=== PATIENT | female | born 1955 | race African-American/Black ===

== ENCOUNTER 2021-08-13 14:00 | Inpatient (IN) | payer OTHER ==
[2021-08-13 17:05] LABS: BASO % 1.2 % (0-2.0); EOS % 3.1 % (0-4.5); HEMATOCRIT 35.3 % (32.4-45.2); HEMOGLOBIN 11.5 GM/dL (10.7-15.3); LYMPH % 24.3 % (8-40); MCH 33.3 pg (25.7-33.7); MCHC 32.5 g/dl (32.0-36.0); MEAN CELL VOLUME 102.6 fl (80-96); MEAN PLT VOLUME 9.9 fl (7.5-11.1); MONO % 10.8 % (3.8-10.2); NEUT % 60.6 % (42.8-82.8); PLATELET COUNT 257 10^3/uL (134-434); RBC 3.44 M/mm3 (3.60-5.2); RDW 25.7 % (11.6-15.6); WHITE BLOOD COUNT 7.3 K/mm3 (4.0-10.0)
[2021-08-13 17:31] LABS: ANISOCYTOSIS 3+; MACROCYTOSIS 3+; TARGET CELLS 1+
[2021-08-13 18:00] LABS: CHLORIDE 95 mmol/L (98-107); SODIUM 133 mmol/L (136-145)
[2021-08-13 18:02] LABS: BLOOD UREA NITROGEN 55.4 mg/dL (7-18); CALCIUM 10.2 mg/dL (8.5-10.1); CO2 23 mmol/L (21-32); GLUCOSE,RANDOM 78 mg/dL (74-106); MAGNESIUM 2.1 mg/dL (1.8-2.4)
[2021-08-13 18:06] LABS: SGOT/AST 167 U/L (15-37); SGPT/ALT 124 U/L (13-61)
[2021-08-13 18:07] LABS: BILIRUBIN,TOTAL 2.4 mg/dL (0.2-1); TOT PROT 7.9 g/dl (6.4-8.2)
[2021-08-13 18:08] LABS: ALK PHOS 227 U/L (45-117)
[2021-08-13 18:10] LABS: N-TERMINAL BNP 31964.6 pg/ml (5-125)
[2021-08-13 18:27] LABS: ANION GAP 15 MMOL/L (8-16); CREATININE 8.1 mg/dL (0.55-1.3)
[2021-08-13 18:41] LABS: INR 1.73 (0.83-1.09)
[2021-08-13 18:43] LABS: ACTIVATED PTT 41.2 SECONDS (25.2-36.5)
[2021-08-13 18:54] LABS: CHLORIDE 97 mmol/L (98-107); SODIUM 137 mmol/L (136-145)
[2021-08-13 18:56] LABS: CALCIUM 9.5 mg/dL (8.5-10.1)
[2021-08-13 18:57] LABS: ANION GAP 17 MMOL/L (8-16); BLOOD UREA NITROGEN 51.6 mg/dL (7-18); CO2 23 mmol/L (21-32); GLUCOSE,RANDOM 74 mg/dL (74-106)
[2021-08-13 19:00] LABS: SGOT/AST 134 U/L (15-37); SGPT/ALT 116 U/L (13-61)
[2021-08-13 19:01] LABS: BILIRUBIN,TOTAL 2.3 mg/dL (0.2-1); TOT PROT 7.5 g/dl (6.4-8.2)
[2021-08-13 19:02] LABS: ALK PHOS 223 U/L (45-117)
[2021-08-13 19:03] LABS: CREATININE 7.6 mg/dL (0.55-1.3)
[2021-08-14 02:05] LABS: URINE APPEARANCE TURBID; URINE BILIRUBIN 3+ (NEGATIVE); URINE COLOR RED; URINE GLUCOSE (UA) NEGATIVE (NEGATIVE); URINE KETONE TRACE (NEGATIVE); URINE LEUK ESTERASE 3+ (NEGATIVE); URINE NITRITE POSITIVE (NEGATIVE); URINE PROTEIN 1+ (NEGATIVE); URINE UROBILINOGEN 0.2 mg/dL (0.2-1.0)
[2021-08-14 03:41] VITALS: BMI 27.5
[2021-08-14 04:23] LABS: URINE RBC >1000 /uL (0-23.9)
[2021-08-14 04:24] LABS: URINE BACTERIA 50 /uL (0-1359); URINE WBC 5 /uL (0-25.8)
[2021-08-14] MEDS: LEVOTHYROXINE NA 150 MCG TABLET PO SCH (06:05)
[2021-08-14 07:43] LABS: CHLORIDE 98 mmol/L (98-107); SODIUM 136 mmol/L (136-145)
[2021-08-14 07:48] LABS: ALBUMIN 2.7 g/dl (3.4-5.0); ANION GAP 18 MMOL/L (8-16); BLOOD UREA NITROGEN 61.6 mg/dL (7-18); CALCIUM 9.3 mg/dL (8.5-10.1); CO2 21 mmol/L (21-32); GLUCOSE,RANDOM 52 mg/dL (74-106); HEMATOCRIT 34.6 % (32.4-45.2); MAGNESIUM 1.9 mg/dL (1.8-2.4); MCHC 31.9 g/dl (32.0-36.0); MEAN CELL VOLUME 103.4 fl (80-96); MEAN PLT VOLUME 9.8 fl (7.5-11.1); PLATELET COUNT 197 10^3/uL (134-434); RBC 3.34 M/mm3 (3.60-5.2); RDW 25.4 % (11.6-15.6); WHITE BLOOD COUNT 6.7 K/mm3 (4.0-10.0)
[2021-08-14 07:50] LABS: PHOSPHOROUS 7.4 mg/dL (2.5-4.9); SGOT/AST 120 U/L (15-37); SGPT/ALT 104 U/L (13-61)
[2021-08-14 07:51] LABS: BILIRUBIN,TOTAL 2.4 mg/dL (0.2-1); TOT PROT 6.6 g/dl (6.4-8.2)
[2021-08-14 07:55] LABS: ALK PHOS 193 U/L (45-117)
[2021-08-14 08:12] LABS: CREATININE 8.6 mg/dL (0.55-1.3)
[2021-08-14] MEDS ORDERED: cefTRIAXone SODIUM 1 GM VIAL ONE (09:35)
[2021-08-14] MEDS ORDERED: DEXTROSE 5%-WATER - 50 ML IVPB ONE (09:36)
[2021-08-14] MEDS: CEFTRIAXONE 1 GM in DEXTROSE 5%-WATER - 50 ML IVPB SCH (09:47)
[2021-08-14] MEDS ORDERED: SODIUM CHLORIDE 250 ML IV PRN (10:28)
[2021-08-14] MEDS ORDERED: DEXTROSE 50%-WATER - 25 GM/50 ML VIAL IVPUSH ONE (13:45)
[2021-08-14] MEDS ORDERED: DEXTROSE 70%-WATER - 35 ML, WATER FOR INJ,STERILE 15 ML IV ONE (13:45)
[2021-08-14] MEDS: ASPIRIN 81 MG CHEWABLE TABLETS PO SCH (16:22)
[2021-08-14] MEDS: HEPARIN NA (PORCINE) 5,000 UNITS/ML 1ML VIAL SQ SCH ×2 (16:22→21:31)
[2021-08-14] MEDS: CLOPIDOGREL BISULFATE 75 MG TABLET (FP) PO SCH (16:22)
[2021-08-14] MEDS: SEVELAMER CARBONATE 800 MG TAB (FP) PO SCH (17:12)
[2021-08-14] MEDS ORDERED: traZODone HCL 50 MG TABLET (FP) PO ONE (23:16)
[2021-08-15] MEDS: LEVOTHYROXINE NA 150 MCG TABLET PO SCH (06:10)
[2021-08-15] MEDS ORDERED: cefTRIAXone SODIUM 1 GM VIAL ONE (09:01)
[2021-08-15] MEDS ORDERED: DEXTROSE 5%-WATER - 50 ML IVPB ONE (09:02)
[2021-08-15] MEDS: SEVELAMER CARBONATE 800 MG TAB (FP) PO SCH ×3 (09:25→17:40)
[2021-08-15] MEDS: HEPARIN NA (PORCINE) 5,000 UNITS/ML 1ML VIAL SQ SCH ×2 (09:25→21:56)
[2021-08-15] MEDS: CLOPIDOGREL BISULFATE 75 MG TABLET (FP) PO SCH (09:25)
[2021-08-15] MEDS: ASPIRIN 81 MG CHEWABLE TABLETS PO SCH (09:26)
[2021-08-15] MEDS: CEFTRIAXONE 1 GM in DEXTROSE 5%-WATER - 50 ML IVPB SCH (09:36)
[2021-08-15] MEDS ORDERED: CARVEDILOL 3.125 MG TABLET (FP) PO ONE (17:29)
[2021-08-15] MEDS: traZODone HCL 50 MG TABLET (FP) PO SCH (21:56)
[2021-08-16] MEDS: LEVOTHYROXINE NA 150 MCG TABLET PO SCH (07:01)
[2021-08-16 07:31] LABS: BASO % 1.1 % (0-2.0); EOS % 7.7 % (0-4.5); HEMATOCRIT 33.6 % (32.4-45.2); HEMOGLOBIN 10.7 GM/dL (10.7-15.3); LYMPH % 24.9 % (8-40); MCH 33.2 pg (25.7-33.7); MCHC 31.9 g/dl (32.0-36.0); MEAN PLT VOLUME 8.8 fl (7.5-11.1); MONO % 12.6 % (3.8-10.2); NEUT % 53.7 % (42.8-82.8); PLATELET COUNT 157 10^3/uL (134-434); RBC 3.23 M/mm3 (3.60-5.2); RDW 26.8 % (11.6-15.6); WHITE BLOOD COUNT 5.5 K/mm3 (4.0-10.0)
[2021-08-16 07:56] LABS: CALCIUM 9.5 mg/dL (8.5-10.1)
[2021-08-16 07:57] LABS: ALBUMIN 2.6 g/dl (3.4-5.0)
[2021-08-16 08:00] LABS: CREATININE 7.4 mg/dL (0.55-1.3)
[2021-08-16 08:02] LABS: BILIRUBIN,TOTAL 1.9 mg/dL (0.2-1); TOT PROT 6.8 g/dl (6.4-8.2)
[2021-08-16] MEDS ORDERED: cefTRIAXone SODIUM 1 GM VIAL ONE (08:52)
[2021-08-16] MEDS ORDERED: DEXTROSE 5%-WATER - 50 ML IVPB ONE (08:53)
[2021-08-16] MEDS: ASPIRIN 81 MG CHEWABLE TABLETS PO SCH (09:57)
[2021-08-16] MEDS: HEPARIN NA (PORCINE) 5,000 UNITS/ML 1ML VIAL SQ SCH ×2 (09:57→22:19)
[2021-08-16] MEDS: SEVELAMER CARBONATE 800 MG TAB (FP) PO SCH ×3 (09:57→17:48)
[2021-08-16] MEDS: CLOPIDOGREL BISULFATE 75 MG TABLET (FP) PO SCH (09:57)
[2021-08-16] MEDS: CEFTRIAXONE 1 GM in DEXTROSE 5%-WATER - 50 ML IVPB SCH (09:58)
[2021-08-16] MEDS ORDERED: SODIUM CHLORIDE 250 ML IV PRN (13:46)
[2021-08-16] MEDS: traZODone HCL 50 MG TABLET (FP) PO SCH (22:19)
[2021-08-17] MEDS: LEVOTHYROXINE NA 150 MCG TABLET PO SCH ×2 (05:24→06:07)
[2021-08-17] MEDS: SEVELAMER CARBONATE 800 MG TAB (FP) PO SCH ×3 (08:22→18:10)
[2021-08-17 08:41] LABS: BLOOD UREA NITROGEN 24.8 mg/dL (7-18); CALCIUM 8.7 mg/dL (8.5-10.1)
[2021-08-17 08:44] LABS: CREATININE 5.6 mg/dL (0.55-1.3)
[2021-08-17] MEDS ORDERED: cefTRIAXone SODIUM 1 GM VIAL ONE (09:07)
[2021-08-17] MEDS ORDERED: DEXTROSE 5%-WATER - 50 ML IVPB ONE (09:07)
[2021-08-17] MEDS: HEPARIN NA (PORCINE) 5,000 UNITS/ML 1ML VIAL SQ SCH ×2 (09:16→22:09)
[2021-08-17] MEDS: CLOPIDOGREL BISULFATE 75 MG TABLET (FP) PO SCH (09:16)
[2021-08-17] MEDS: PANTOPRAZOLE 20 MG TABLET PO SCH (09:16)
[2021-08-17] MEDS: ASPIRIN 81 MG CHEWABLE TABLETS PO SCH (09:16)
[2021-08-17 10:50] LABS: ALBUMIN 2.6 g/dl (3.4-5.0)
[2021-08-17 10:53] LABS: BILIRUBIN,DIRECT 1.1 mg/dL (0.0-0.2)
[2021-08-17 10:54] LABS: TOT PROT 6.6 g/dl (6.4-8.2)
[2021-08-17 10:55] LABS: BILIRUBIN,TOTAL 1.7 mg/dL (0.2-1)
[2021-08-17] MEDS ORDERED: FUROSEMIDE 40 MG TABLET (FP) PO ONE ×2 (15:37→18:15)
[2021-08-17] MEDS ORDERED: SODIUM CHLORIDE 250 ML IV PRN (15:37)
[2021-08-17 16:15] LABS: CALCIUM 9.2 mg/dL (8.5-10.1)
[2021-08-17 16:16] LABS: ALBUMIN 2.7 g/dl (3.4-5.0); BLOOD UREA NITROGEN 26.5 mg/dL (7-18)
[2021-08-17 16:21] LABS: BILIRUBIN,TOTAL 1.4 mg/dL (0.2-1); TOT PROT 7.1 g/dl (6.4-8.2)
[2021-08-17] MEDS: POLYETHYLENE GLYCOL (HEALTHYLAX) 3350 17 GM PACKET PO SCH (22:08)
[2021-08-17] MEDS: traZODone HCL 50 MG TABLET (FP) PO SCH (22:08)
[2021-08-18] MEDS: LEVOTHYROXINE NA 150 MCG TABLET PO SCH (06:21)
[2021-08-18] MEDS: SEVELAMER CARBONATE 800 MG TAB (FP) PO SCH ×3 (08:00→18:18)
[2021-08-18 09:08] LABS: HEMATOCRIT 34.4 % (32.4-45.2); HEMOGLOBIN 10.9 GM/dL (10.7-15.3); MCH 33.4 pg (25.7-33.7); MCHC 31.6 g/dl (32.0-36.0); MEAN CELL VOLUME 105.6 fl (80-96); MEAN PLT VOLUME 9.6 fl (7.5-11.1); PLATELET COUNT 157 10^3/uL (134-434); RBC 3.26 M/mm3 (3.60-5.2); RDW 26.3 % (11.6-15.6); WHITE BLOOD COUNT 5.4 K/mm3 (4.0-10.0)
[2021-08-18 09:23] LABS: ALBUMIN 2.6 g/dl (3.4-5.0); CALCIUM 9.2 mg/dL (8.5-10.1)
[2021-08-18 09:24] LABS: BLOOD UREA NITROGEN 28.6 mg/dL (7-18)
[2021-08-18 09:26] LABS: CREATININE 6.7 mg/dL (0.55-1.3)
[2021-08-18 09:28] LABS: BILIRUBIN,TOTAL 1.5 mg/dL (0.2-1); TOT PROT 6.7 g/dl (6.4-8.2)
[2021-08-18] MEDS: HEPARIN NA (PORCINE) 5,000 UNITS/ML 1ML VIAL SQ SCH ×2 (10:00→21:17)
[2021-08-18 10:28] LABS: ANISOCYTOSIS 0; HELMET CELLS 0; HOWELL-JOLLY BODIES 0; MACROCYTOSIS 0; OVALOCYTE 0; ROULEAU 0; SICKELED CELLS 0; TARGET CELLS 0; TEAR DROP CELLS 0; TOXIC GRANULATION 0
[2021-08-18] MEDS ORDERED: SODIUM CHLORIDE 250 ML IV PRN (12:15)
[2021-08-18] MEDS: ASPIRIN 81 MG CHEWABLE TABLETS PO SCH (13:19)
[2021-08-18] MEDS: POLYETHYLENE GLYCOL (HEALTHYLAX) 3350 17 GM PACKET PO SCH ×2 (13:19→21:05)
[2021-08-18] MEDS: PANTOPRAZOLE 20 MG TABLET PO SCH (13:19)
[2021-08-18] MEDS: CLOPIDOGREL BISULFATE 75 MG TABLET (FP) PO SCH (13:20)
[2021-08-18] MEDS: traZODone HCL 50 MG TABLET (FP) PO SCH (21:17)
[2021-08-19] MEDS: LEVOTHYROXINE NA 150 MCG TABLET PO SCH (06:03)
[2021-08-19 08:33] LABS: INR 1.45 (0.83-1.09); PROTHROMBIN TIME (PATIENT) 16.7 SEC (9.7-13.0)
[2021-08-19] MEDS ORDERED: HEPARIN NA (PORCINE) 5,000 UNITS/ML 1ML VIAL IVPUSH ONE (12:15)
[2021-08-19 13:11] LABS: HEMATOCRIT 33.6 % (32.4-45.2); HEMOGLOBIN 10.7 GM/dL (10.7-15.3); MCH 33.2 pg (25.7-33.7); MCHC 31.8 g/dl (32.0-36.0); MEAN CELL VOLUME 104.4 fl (80-96); MEAN PLT VOLUME 9.8 fl (7.5-11.1); PLATELET COUNT 153 10^3/uL (134-434); RBC 3.22 M/mm3 (3.60-5.2); RDW 25.6 % (11.6-15.6)
[2021-08-19 13:32] LABS: CALCIUM 8.4 mg/dL (8.5-10.1)
[2021-08-19 13:33] LABS: BLOOD UREA NITROGEN 18.1 mg/dL (7-18)
[2021-08-19 13:36] LABS: CREATININE 4.7 mg/dL (0.55-1.3)
[2021-08-19] MEDS: SEVELAMER CARBONATE 800 MG TAB (FP) PO SCH ×3 (15:16→18:08)
[2021-08-19] MEDS: POLYETHYLENE GLYCOL (HEALTHYLAX) 3350 17 GM PACKET PO SCH ×2 (15:17→21:36)
[2021-08-19] MEDS: HEPARIN NA (PORCINE) 5,000 UNITS/ML 1ML VIAL SQ SCH ×2 (15:17→21:37)
[2021-08-19] MEDS: CLOPIDOGREL BISULFATE 75 MG TABLET (FP) PO SCH (15:19)
[2021-08-19] MEDS: PANTOPRAZOLE 20 MG TABLET PO SCH (15:19)
[2021-08-19] MEDS: ASPIRIN 81 MG CHEWABLE TABLETS PO SCH (15:20)
[2021-08-19 18:34] LABS: ALBUMIN 2.5 g/dl (3.4-5.0)
[2021-08-19 18:37] LABS: BILIRUBIN,DIRECT 0.9 mg/dL (0.0-0.2)
[2021-08-19 18:39] LABS: BILIRUBIN,TOTAL 1.2 mg/dL (0.2-1); TOT PROT 6.4 g/dl (6.4-8.2)
[2021-08-19] MEDS: traZODone HCL 50 MG TABLET (FP) PO SCH (21:37)
[2021-08-20] MEDS: LEVOTHYROXINE NA 150 MCG TABLET PO SCH (06:19)
[2021-08-20] MEDS: POLYETHYLENE GLYCOL (HEALTHYLAX) 3350 17 GM PACKET PO SCH (09:01)
[2021-08-20] MEDS: CLOPIDOGREL BISULFATE 75 MG TABLET (FP) PO SCH (09:01)
[2021-08-20] MEDS: ASPIRIN 81 MG CHEWABLE TABLETS PO SCH (09:01)
[2021-08-20] MEDS: PANTOPRAZOLE 20 MG TABLET PO SCH (09:01)
[2021-08-20] MEDS: SEVELAMER CARBONATE 800 MG TAB (FP) PO SCH ×2 (09:01→12:49)
[2021-08-20] MEDS: HEPARIN NA (PORCINE) 5,000 UNITS/ML 1ML VIAL SQ SCH (09:01)
[2021-08-20 10:54] VITALS: BP 132/75; PULSE 87; TEMP 98.7
== END 2021-08-20 14:26 | DRG 291 ==
LOC: JER 14:00 → JERBED 22:28 → J4W 08-14 03:09
PROVIDERS: ADMIT Internal Medicine; ATTEND Family Medicine
PROC: 5A1D70Z Performance of Urinary Filtration, Intermittent, Less than 6 Hours Per Day (ICD-10-PCS; principal; 2021-08-19)
DX: I13.2 Hypertensive heart and chronic kidney disease with heart failure and with stage 5 chronic kidney disease, or end stage renal disease (principal); N18.6 End stage renal disease; I50.23 Acute on chronic systolic (congestive) heart failure; N39.0 Urinary tract infection, site not specified; K62.5 Hemorrhage of anus and rectum; I47.2 Ventricular tachycardia; D25.9 Leiomyoma of uterus, unspecified; I25.10 Atherosclerotic heart disease of native coronary artery without angina pectoris; Z99.2 Dependence on renal dialysis; E78.5 Hyperlipidemia, unspecified; E03.9 Hypothyroidism, unspecified; E87.5 Hyperkalemia; R31.9 Hematuria, unspecified; Z95.1 Presence of aortocoronary bypass graft; E87.70 Fluid overload, unspecified; K59.00 Constipation, unspecified
CPT/HCPCS: 36415; 71045-TC-FY; 74176-TC; 74181-TC; 76705-TC; 76856-TC; 80048; 80053; 80076; 81003; 82272; 82550; 82553; 82728; 82962; 83516; 83540; 83550; 83690; 83735; 83880; 84100; 84466; 84484; 85025; 85027; 85610; 85730; 86038; 86803; 87040; 87340; 93005; 93010; 99285-25; C9803; J1644; U0003; U0005

== ENCOUNTER 2022-01-06 00:27 | Inpatient (IN) | payer OTHER ==
[2022-01-06] MEDS ORDERED: CALCIUM GLUCONATE 10% - 1,000 MG/10 ML VIAL IVPB ONE (01:50)
[2022-01-06] MEDS ORDERED: CALCIUM CHLORIDE 1 GM/10 ML *DISP.SYRIN ONE (02:44)
[2022-01-06] MEDS ORDERED: SODIUM ZIRCONIUM CYCLOSILICATE (LOKELMA) 5 GM PACKET ONE (02:44)
[2022-01-06] MEDS ORDERED: CALCIUM GLUCONATE 10% - 1,000 MG/10 ML VIAL ONE (02:45)
[2022-01-06] MEDS ORDERED: CALCIUM GLUC IN NACL, ISO-OSM 2 GM/100 ML BAG IVPB ONE (02:48)
[2022-01-06 02:56] LABS: BASO % 1.4 % (0-2.0); EOS % 5.5 % (0-4.5); HEMATOCRIT 31.2 % (32.4-45.2); HEMOGLOBIN 10.6 GM/dL (10.7-15.3); LYMPH % 37.2 % (8-40); MCH 31.9 pg (25.7-33.7); MCHC 34.1 g/dl (32.0-36.0); MEAN CELL VOLUME 93.5 fl (80-96); MEAN PLT VOLUME 7.6 fl (7.5-11.1); MONO % 11.3 % (3.8-10.2); NEUT % 44.6 % (42.8-82.8); PLATELET COUNT 356 10^3/uL (134-434); RBC 3.34 M/mm3 (3.60-5.2); RDW 18.1 % (11.6-15.6)
[2022-01-06 03:14] LABS: CHLORIDE 100 mmol/L (98-107); SODIUM 137 mmol/L (136-145)
[2022-01-06 03:17] LABS: ALBUMIN 2.8 g/dl (3.4-5.0); BLOOD UREA NITROGEN 58.7 mg/dL (7-18); CO2 27 mmol/L (21-32); GLUCOSE,RANDOM 99 mg/dL (74-106); MAGNESIUM 2.2 mg/dL (1.8-2.4)
[2022-01-06 03:20] LABS: CREATININE 6.5 mg/dL (0.55-1.3); PHOSPHOROUS 4.7 mg/dL (2.5-4.9); SGOT/AST 39 U/L (15-37); SGPT/ALT 21 U/L (13-61)
[2022-01-06 03:21] LABS: TOT PROT 7.4 g/dl (6.4-8.2)
[2022-01-06 03:22] LABS: BILIRUBIN,TOTAL 0.5 mg/dL (0.2-1)
[2022-01-06 03:23] LABS: ALK PHOS 212 U/L (45-117)
[2022-01-06 03:37] LABS: ANION GAP 11 MMOL/L (8-16)
[2022-01-06] MEDS ORDERED: INSULIN REGULAR HUMAN 100 UNITS/ML *VIAL IVPUSH ONE (04:07)
[2022-01-06] MEDS ORDERED: DEXTROSE 50%-WATER - 25 GM/50 ML VIAL IVPUSH ONE ×2 (04:07→05:30)
[2022-01-06] MEDS ORDERED: INSULIN REGULAR HUMAN 100 UNITS/ML *VIAL ONE (04:20)
[2022-01-06] MEDS ORDERED: DEXTROSE 50%-WATER 25 GM/50 ML DISP.SYRIN ONE ×2 (04:20→05:30)
[2022-01-06] MEDS: SODIUM ZIRCONIUM CYCLOSILICATE (LOKELMA) 5 GM PACKET PO SCH ×2 (04:35→10:02)
[2022-01-06] MEDS ORDERED: DEXTROSE 50%-WATER - 25 GM/50 ML VIAL IVPUSH PRN (06:17)
[2022-01-06] MEDS ORDERED: SODIUM CHLORIDE 250 ML IV PRN (08:25)
[2022-01-06] MEDS ORDERED: SODIUM ZIRCONIUM CYCLOSILICATE (LOKELMA) 5 GM PACKET PO SCH (10:00)
[2022-01-06] MEDS: ALBUTEROL SO4 2.5/IPRATROPIUM 0.5 INH SOL 3 ML VIAL.NEB. NEB SCH ×2 (13:45→22:48)
[2022-01-06] MEDS ORDERED: ALBUTEROL SO4 2.5/IPRATROPIUM 0.5 INH SOL 3 ML VIAL.NEB. NEB ONE (15:29)
[2022-01-06] MEDS ORDERED: traZODone HCL 50 MG TABLET (FP) PO SCH (22:00)
[2022-01-06] MEDS: HEPARIN NA (PORCINE) 5,000 UNITS/ML 1ML VIAL SQ SCH (22:31)
[2022-01-06] MEDS: POLYETHYLENE GLYCOL (HEALTHYLAX) 3350 17 GM PACKET PO SCH (22:31)
[2022-01-07] MEDS ORDERED: traZODone HCL 50 MG TABLET (FP) PO ONE ×2 (02:23→21:15)
[2022-01-07 04:25] VITALS: BMI 27.3
[2022-01-07] MEDS: LEVOTHYROXINE NA 150 MCG TABLET PO SCH (06:17)
[2022-01-07] MEDS: ALBUTEROL SO4 2.5/IPRATROPIUM 0.5 INH SOL 3 ML VIAL.NEB. NEB SCH ×3 (07:45→20:39)
[2022-01-07] MEDS: SERTRALINE HCL 50 MG TABLET (FP) PO SCH (10:12)
[2022-01-07] MEDS: ASPIRIN 81 MG CHEWABLE TABLETS PO SCH (10:12)
[2022-01-07] MEDS: HEPARIN NA (PORCINE) 5,000 UNITS/ML 1ML VIAL SQ SCH ×2 (10:12→21:08)
[2022-01-07] MEDS: SODIUM ZIRCONIUM CYCLOSILICATE (LOKELMA) 5 GM PACKET PO SCH (10:12)
[2022-01-07] MEDS: PANTOPRAZOLE 20 MG TABLET PO SCH (10:12)
[2022-01-07] MEDS: CLOPIDOGREL BISULFATE 75 MG TABLET (FP) PO SCH (10:12)
[2022-01-07] MEDS: POLYETHYLENE GLYCOL (HEALTHYLAX) 3350 17 GM PACKET PO SCH ×3 (10:13→21:13)
[2022-01-07 11:38] LABS: CALCIUM 9.4 mg/dL (8.5-10.1)
[2022-01-07 11:42] LABS: CREATININE 5.1 mg/dL (0.55-1.3)
[2022-01-07 11:43] LABS: BLOOD UREA NITROGEN 31.7 mg/dL (7-18)
[2022-01-07] MEDS ORDERED: SODIUM CHLORIDE 250 ML IV PRN (15:12)
[2022-01-07] MEDS ORDERED: traZODone HCL 50 MG TABLET (FP) PO PRN (21:11)
[2022-01-08] MEDS: LEVOTHYROXINE NA 150 MCG TABLET PO SCH (06:08)
[2022-01-08] MEDS: ALBUTEROL SO4 2.5/IPRATROPIUM 0.5 INH SOL 3 ML VIAL.NEB. NEB SCH ×3 (08:00→20:10)
[2022-01-08] MEDS: HEPARIN NA (PORCINE) 5,000 UNITS/ML 1ML VIAL SQ SCH ×2 (09:08→22:09)
[2022-01-08] MEDS: CLOPIDOGREL BISULFATE 75 MG TABLET (FP) PO SCH (09:09)
[2022-01-08] MEDS: SODIUM ZIRCONIUM CYCLOSILICATE (LOKELMA) 5 GM PACKET PO SCH (09:09)
[2022-01-08] MEDS: PANTOPRAZOLE 20 MG TABLET PO SCH (09:09)
[2022-01-08] MEDS: ASPIRIN 81 MG CHEWABLE TABLETS PO SCH (09:09)
[2022-01-08] MEDS: SERTRALINE HCL 50 MG TABLET (FP) PO SCH (09:09)
[2022-01-08] MEDS: POLYETHYLENE GLYCOL (HEALTHYLAX) 3350 17 GM PACKET PO SCH ×2 (09:13→22:09)
[2022-01-08 16:33] VITALS: RESP 18
[2022-01-08 20:07] LABS: HEMATOCRIT 31.1 % (32.4-45.2); HEMOGLOBIN 10.3 GM/dL (10.7-15.3); MCH 30.9 pg (25.7-33.7); MCHC 33.1 g/dl (32.0-36.0); MEAN CELL VOLUME 93.6 fl (80-96); MEAN PLT VOLUME 7.6 fl (7.5-11.1); PLATELET COUNT 300 10^3/uL (134-434); RBC 3.32 M/mm3 (3.60-5.2); RDW 18.1 % (11.6-15.6); WHITE BLOOD COUNT 4.6 K/mm3 (4.0-10.0)
[2022-01-08 20:21] LABS: ALBUMIN 3.2 g/dl (3.4-5.0); CALCIUM 8.9 mg/dL (8.5-10.1)
[2022-01-08 20:22] LABS: BLOOD UREA NITROGEN 47.8 mg/dL (7-18)
[2022-01-08 20:24] LABS: CREATININE 6.7 mg/dL (0.55-1.3)
[2022-01-08 20:26] LABS: BILIRUBIN,TOTAL 0.5 mg/dL (0.2-1); TOT PROT 7.6 g/dl (6.4-8.2)
[2022-01-08] MEDS ORDERED: traZODone HCL 50 MG TABLET (FP) PO ONE ×2 (22:38→23:00)
[2022-01-09] MEDS: LEVOTHYROXINE NA 150 MCG TABLET PO SCH (06:14)
[2022-01-09] MEDS: ALBUTEROL SO4 2.5/IPRATROPIUM 0.5 INH SOL 3 ML VIAL.NEB. NEB SCH ×3 (08:00→20:29)
[2022-01-09] MEDS ORDERED: ZOLPIDEM TARTRATE 5 MG TABLET PO PRN (10:27)
[2022-01-09] MEDS: POLYETHYLENE GLYCOL (HEALTHYLAX) 3350 17 GM PACKET PO SCH ×2 (10:44→21:40)
[2022-01-09] MEDS: SODIUM ZIRCONIUM CYCLOSILICATE (LOKELMA) 5 GM PACKET PO SCH (10:44)
[2022-01-09] MEDS: HEPARIN NA (PORCINE) 5,000 UNITS/ML 1ML VIAL SQ SCH ×2 (10:45→21:35)
[2022-01-09] MEDS: PANTOPRAZOLE 20 MG TABLET PO SCH (10:45)
[2022-01-09] MEDS: ASPIRIN 81 MG CHEWABLE TABLETS PO SCH (10:45)
[2022-01-09] MEDS: SERTRALINE HCL 50 MG TABLET (FP) PO SCH (10:45)
[2022-01-09] MEDS: CLOPIDOGREL BISULFATE 75 MG TABLET (FP) PO SCH (10:45)
[2022-01-10] MEDS ORDERED: SODIUM CHLORIDE NASAL SPRAY 44 ML BOTTLE NS PRN (01:17)
[2022-01-10] MEDS: LEVOTHYROXINE NA 150 MCG TABLET PO SCH (06:22)
[2022-01-10] MEDS: ALBUTEROL SO4 2.5/IPRATROPIUM 0.5 INH SOL 3 ML VIAL.NEB. NEB SCH ×2 (07:15→14:15)
[2022-01-10] MEDS: PANTOPRAZOLE 20 MG TABLET PO SCH (09:46)
[2022-01-10] MEDS: CLOPIDOGREL BISULFATE 75 MG TABLET (FP) PO SCH (09:46)
[2022-01-10] MEDS: HEPARIN NA (PORCINE) 5,000 UNITS/ML 1ML VIAL SQ SCH (09:46)
[2022-01-10] MEDS: ASPIRIN 81 MG CHEWABLE TABLETS PO SCH (09:46)
[2022-01-10] MEDS: POLYETHYLENE GLYCOL (HEALTHYLAX) 3350 17 GM PACKET PO SCH (09:46)
[2022-01-10] MEDS: SODIUM ZIRCONIUM CYCLOSILICATE (LOKELMA) 5 GM PACKET PO SCH (09:46)
[2022-01-10] MEDS: SERTRALINE HCL 50 MG TABLET (FP) PO SCH (09:46)
[2022-01-10 14:35] VITALS: BP 112/48; PULSE 79; TEMP 98.6
== END 2022-01-10 16:37 | DRG 640 ==
LOC: JER 00:27 → JERBED 01:51 → J5S 21:37
PROVIDERS: ADMIT Family Medicine; ATTEND Family Medicine
PROC: 5A1D70Z Performance of Urinary Filtration, Intermittent, Less than 6 Hours Per Day (ICD-10-PCS; principal; 2022-01-06)
PROC: 5A1D70Z Performance of Urinary Filtration, Intermittent, Less than 6 Hours Per Day (ICD-10-PCS; 2022-01-08)
DX: E87.5 Hyperkalemia (principal); N18.6 End stage renal disease; I13.2 Hypertensive heart and chronic kidney disease with heart failure and with stage 5 chronic kidney disease, or end stage renal disease; J44.9 Chronic obstructive pulmonary disease, unspecified; E78.5 Hyperlipidemia, unspecified; F41.9 Anxiety disorder, unspecified; I25.10 Atherosclerotic heart disease of native coronary artery without angina pectoris; E03.9 Hypothyroidism, unspecified; I50.9 Heart failure, unspecified; Z99.2 Dependence on renal dialysis; Z95.1 Presence of aortocoronary bypass graft
CPT/HCPCS: 36415; 80048; 80053; 82962; 83735; 84100; 84132; 85025; 85027; 86803; 87340; 93005; 93010; 94640; 99285-25; C9803-CS; J1644; U0003; U0005